=== PATIENT | female | born 1995 | race Caucasian/White ===

== ENCOUNTER → 2020-03-27 | Outpatient (CLI) | payer BC ==
[2020-03-27] VITALS (20 sets, daily range): BP systolic 79–130; BP diastolic 29–76
--- NOTE | 2020-03-30 12:41 | PROC ---
[address] [address] PROCEDURE REPORT Name: JUSTIN ALARCON Room: [facility]#: [id number] Admission: 03/27/20 Attend Phys: Juan Carlos Nance MD, F Discharge: Date of : [birth year] Report #: [id number] THIS REPORT FOR: //name// cc: Bong Hawkins James A. DO ~ CC: Juan Carlos Byrd MD DATE OF SERVICE: 03/27/2020 TYPE OF PROCEDURE: Tilt table testing using sublingual nitroglycerin. INDICATIONS: A tilt-table testing was requested in this patient with a history of syncope. The patient had a pretest heart rate of 85, blood pressure 105/70. Monitor showed the patient was in a normal sinus rhythm. The patient was then placed in the upright position and had a blood pressure 113/70 with a pulse of 85 and remained in sinus rhythm. The patient was then placed in the tilt-table at 70 degrees upright position. She had no complaints at this time. Initial blood pressure 104/70 with pulse of 86. The patient remained in sinus rhythm and had no complaints at this time. After 10 minutes, the patient did develop sinus tachycardia with blood pressure 102/60. After 30 minutes, the patient had a blood pressure 113/47 with a pulse of 109 and had no complaints. After 30 minutes, the patient was given sublingual nitroglycerin in the upright position at 70 degrees. At this time, the patient had a blood pressure 126/71, pulse of 114. After 5 minutes, the patient complained of lightheadedness and nausea. Blood pressure dropped to 79/29 and pulse increased to 170 beats per minute consistent with sinus tachycardia. The patient had a brief loss of consciousness and was placed back in the supine position, at which time a blood pressure of 80/39 with a pulse of 80. She then regained consciousness and her blood pressure of 94/37 with pulse of 50 and she was in sinus bradycardia. At the end of the procedure, the patient had a blood pressure 108/42 with pulse of 92 and she was in sinus rhythm. IMPRESSION: 1. Positive head upright tilt-table testing using sublingual nitroglycerin consistent with neurocardiogenic syncope. 2. Predominant response was a vasodepressor response with no evidence of a cardioinhibitory response. <ELECTRONICALLY SIGNED> By: Juan Carlos Nance MD, FACC 03/30/20 1241 1624 [id number] Nance MD, FACC /nt
== END | disposition home or self-care (01) ==
LOC: M.CL 08:56
PROVIDERS: ATTEND Internal Medicine Cardiovascular Disease
DX: R55 Syncope and collapse (principal); R56.9 Unspecified convulsions

== ENCOUNTER → 2020-04-01 | Outpatient (CLI) | payer BC ==
--- NOTE | ~2020-04-01 | EEG ---
[address] [address] EEG STUDY REPORT Name: JUSTIN ALARCON Room: [facility]#: [id number] Admission: 04/01/20 Attend Phys: PARAMJIT Gomes Discharge: Date of : [birth year] Report #: [id number] THIS REPORT FOR: //name// CC: Bong Rizvi DATE OF SERVICE: 04/01/2020 This patient is being evaluated for syncope. EEG is being done to evaluate for the possibility of seizure. EEG was done by placing the electrode by standard 10-20 system of electrode placement. Both referential and sequential montages were used for recording. Background activity in this patient's EEG is about 9-10 Hz and 30 microvolt. The patient went to sleep that is associated with bilateral slowing and vertex sharp waves. Photic stimulation is unremarkable. Throughout the record, no active epileptiform activity was noticed. IMPRESSION: This patient's EEG is within normal limits. It might be mentioned that EEG can be normal in a patient with a seizure disorder. Thank you very much for this referral. By: [id number] Zacarias MD /yuri
== END ==
LOC: M.CRD 09:51
PROVIDERS: ATTEND Registered Nurse
DX: R56.9 Unspecified convulsions (principal)

== ENCOUNTER 2020-07-30 23:58 | Emergency (ER) | payer BC ==
[~2020-07-30] VITALS: Ht 162.6 cm; Wt 59.0 kg
[2020-07-31] MEDS ORDERED: TOPROL XL25 MG PO (00:14)
[2020-07-31 00:51] LABS: ABSOLUTE LYMPHOCYTES 2.2 thou/uL (0.8-5.3); ABSOLUTE MONOCYTES 0.5 thou/uL (0.0-1.2); ABSOLUTE NEUTROPHILS 2.8 thou/uL (1.6-8.1); BASOPHILS 0.8 %; EOSINOPHILS 0.6 %; HEMATOCRIT 40.3 % (37.0-47.0); HEMOGLOBIN 13.4 gm/dL (12.0-15.0); LYMPHOCYTES 40.3 %; MCH 30.3 pg (26.0-34.0); MCHC 33.2 g/dL (28.0-37.0); MCV 91.2 fL (80.0-100.0); MONOCYTES 8.3 %; MPV 6.9 fl. (7.2-11.1); NUCLEATED RBCS 0 /100WBC; PLATELET COUNT* 268 thou/uL (150-400); RBC 4.43 mil/uL (4.20-5.00); RDW-CV 12.6 % (10.5-14.5); WBC 5.6 thou/uL (4.0-11.0)
[2020-07-31 01:00] LABS: CALCIUM 9.4 mg/dL (8.5-10.1); CREATININE 0.7 mg/dL (0.6-1.3); POTASSIUM 3.6 mmol/L (3.5-5.1)
[2020-07-31 01:04] LABS: ALBUMIN 3.9 g/dL (3.4-5.0); MAGNESIUM 2.2 mg/dL (1.8-2.4); PHOSPHORUS* 3.1 mg/dL (2.5-4.9); TOTAL BILIRUBIN 0.7 mg/dL (<0.1-1.0); TOTAL PROTEIN 7.2 g/dL (6.4-8.2)
[2020-07-31 02:10] VITALS: BP 100/58
[2020-07-31 02:20] LABS: URINE BILIRUBIN NEGATIVE (Negative); URINE BLOOD TRACE (Negative); URINE CLARITY CLEAR; URINE COLOR YELLOW; URINE GLUCOSE-RANDOM NEGATIVE (Negative); URINE KETONES NEGATIVE (Negative); URINE LEUKOCYTES-REFLEX NEGATIVE (Negative); URINE NITRITE-REFLEX NEGATIVE (Negative); URINE PROTEIN NEGATIVE (Negative); URINE SPECIFIC GRAVITY >= 1.030 (1.005-1.030); URINE UROBILINOGEN 0.2 E.U./dl (0.2-1.0)
--- NOTE | 2020-07-31 10:55 | EKG ---
[place] [address] ELECTROCARDIOGRAM REPORT Name: DORIANJUSTINJeff PANDA Room: [facility]#: [id number] Admission: 07/30/20 Attend Phys: Discharge: 07/31/20 Date of : [birth year] Date of Service: 07/31/20 0055 Report #: [id number] THIS REPORT FOR: //name// [facility] ED Test Date: 2020-07-31 Test Time: 00:55:13 Pat Name: JUSTIN ALARCON Department: Room: Gender: F Panel Laminator: [facility] : 1995 Requested By: Alejandra Coughlin Order Number: [id number] MD: Yaw Hannon Measurements Intervals [place] Rate: 66 P: 32 [place]: 146 QRS: 55 QRSD: 81 T: 5 QT: 366 QTc: 384 Interpretive Statements Sinus rhythm Baseline wander in lead(s) II,III,aVF Compared to ECG 11/08/2015 17:41:17 No significant changes Electronically Signed On 07-31-2020 10:55:30 CDT by Yaw Hannon [email or web address] <ELECTRONICALLY SIGNED> By: Yaw Hannon MD, [facility] 07/31/20 1055 0055 0055 Yaw Hannon MD, [facility] /EPI
== END 2020-07-31 02:10 | disposition home or self-care (01) ==
LOC: M.ERS 23:58
PROVIDERS: Personal Emergency Response Attendant
DX: G90.9 Disorder of the autonomic nervous system, unspecified (principal); Z87.442 Personal history of urinary calculi; Z90.49 Acquired absence of other specified parts of digestive tract; Z79.899 Other long term (current) drug therapy

== ENCOUNTER 2021-01-10 12:16 | Emergency (ER) | payer OTHER ==
[~2021-01-10] VITALS: Ht 165.1 cm; Wt 54.4 kg
[~2021-01-10 12:16] MED LIST: TOPROL XL25 MG PO
[2021-01-10] MEDS ORDERED: DEXAMETHASONE 44 M1 PO (13:01)
[2021-01-10] MEDS ORDERED: VENTOLIN HFA 1818 GM INH (13:01)
[2021-01-10 13:09] VITALS: BP 110/70
== END 2021-01-10 13:10 | disposition home or self-care (01) ==
LOC: M.ERS 12:16
DX: U07.1 COVID-19 (principal); Z87.442 Personal history of urinary calculi; Z90.49 Acquired absence of other specified parts of digestive tract